=== PATIENT | female | born 1980 ===

== ENCOUNTER → 2019-04-30 | Outpatient (CLI) | payer OTHER ==
[~2019-04-30] MED LIST: CETI10CA8 PO
--- NOTE | 2019-04-30 11:22 | RADIOLOGY IMAGING REPORT ---
FACILITY: [facility] PATIENT NAME: Elizabeth Jacobsen : 1980 MR: [id number] V: [id number] EXAM DATE: ORDERING PHYSICIAN: LUCY RESENDIZ TECHNOLOGIST: Location: [facility] Patient: Elizabeth Jacobsen : 1980 Visit/Account:[id number] Date of Sevice: 04/30/2019 Exam type: SINUSES < 3 VIEWS History: Chronic sinusitis Comparison: None. Findings: Three views were submitted air-fluid levels are not identified in the paranasal sinuses. No signific ant soft tissue mass is present no plain film evidence of bony erosion. No significant nasal septal deviation. The mastoid air cells appear relatively well aerated IMPRESSION: 1. Unremarkable three views of the paranasal sinuses Report Dictated By: Leanna Campos MD at 04/30/2019 11:12 AM Report E-Signed By: Leanna Campos MD at 04/30/2019 11:14 AM WSN:[email or web address]
== END ==
LOC: RAD 10:34
PROVIDERS: ATTEND Otolaryngology
DX: J32.8 Other chronic sinusitis (principal)
CPT/HCPCS: 70220